=== PATIENT | male | born 2005 | race Caucasian/White ===

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

== ENCOUNTER 2025-01-06 18:10 | Emergency (ER) | payer SELFPAY ==
[2025-01-06 18:11] VITALS: BP 107/59; PULSE 95; RESP 16; TEMP 37.1; O2SAT 98; BMI 30.5
[2025-01-06 18:16] VITALS: O2SAT 98
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
[2025-01-06] MEDS: HYDROcodone Bitartrate/Apap 5/325 Tablet PO (20:17)
[2025-01-06 20:18] VITALS: PULSE 84; RESP 16; O2SAT 99
--- NOTE | 2025-01-06 21:50 | RAD_ITS ---
PROCEDURE: WRIST MIN 3 VIEWS 01/06/2025 REASON FOR EXAM: S/P SPLINT TECHNIQUE: WRIST MIN 3 VIEWS COMPARISON: Same day FINDINGS: Interval placement of a splint. Stable appearance to an acute distal radial fracture, with intra-articular extension, and palmar displacement of the major fracture fragment. Ulnar styloid process appears intact. Wrist bones appear intact. There is palmar subluxation of the wrist bones, relative to the distal radius, this does appear partially improved, however. RAD/Wrist min 3 Views IMPRESSION: Interval splinting Reading Location: [place] [id number]
[2025-01-06 22:45] VITALS: BP 110/76; PULSE 79; RESP 16; TEMP 36.7; O2SAT 99
== END 2025-01-06 22:46 | disposition home or self-care (01) ==
PROVIDERS: Emergency Provider Surgery; PCP Pediatrics; Visit Provider Surgery
DX: S52.351A Displaced comminuted fracture of shaft of radius, right arm, initial encounter for closed fracture (principal); S09.90XA Unspecified injury of head, initial encounter; S60.212A Contusion of left wrist, initial encounter; V13.4XXA Pedal cycle driver injured in collision with car, pick-up truck or van in traffic accident, initial encounter
CPT/HCPCS: 70450; 72125; 73110; 73130; 99284